=== PATIENT | female | born 1950 | race Caucasian/White ===

== ENCOUNTER 2019-05-09 12:24 | Emergency (ER) | payer MEDICARE, OTHER, SELFPAY ==
[2019-05-09 12:52] VITALS: BP 125/87; PULSE 94; RESP 16; TEMP 36.6; O2SAT 96; BMI 19.8
--- NOTE | 2019-05-09 13:06 | ED_ITS ---
HPI - General Adult General: Chief complaint: Dental/Oral Stated complaint: DENTAL PAIN Time Seen by Provider: 05/09/19 12:48 History of Present Illness: HPI narrative: Patient presents with swelling left mandible area times a few days. Was seen in urgent care treated for dental abscess placed on Augmentin and area is not improved.. Was told to follow-up here if no improvement. Patient has a history of throat neck cancer. Patient denies fever or pain when eating. MD complaint: growth Onset (ago): day(s) (4) Location: face Radiation: non-radiation Severity: mild Pain Consistency: constant Associated symptoms: Reports no associated symptoms; Deny chest pain, dyspnea, headache(s), nausea, rash or vomiting Review of Systems Const: Denies: fever, chills or body aches Eyes: Denies: change in vision or blurry vision ENMT: Denies: throat pain or nasal congestion Card: Denies: chest pain or shortness of breath on exertion Resp: Denies: shortness of breath, productive cough or non-productive cough GI: Denies: abdominal pain, nausea or vomiting Musc: Denies: extremity pain Skin/Breast: Denies: rash Neuro: Denies: headache Psych: Denies: anxiety or depression Timothy/Lymph: Denies: easy bruising PFSH ED PFSH: Social History (Updated 05/06/19 @ 13:57 by Esther Ghosh LPN) Smoking and tobacco status: former smoker Course Vital Signs: Vital signs: Vital Signs Temperature 97.9 F 05/09/19 12:52 Pulse Rate 94 05/09/19 12:52 Respiratory Rate 16 05/09/19 12:52 Blood Pressure 125/87 05/09/19 12:52 Pulse Oximetry 96 05/09/19 12:52 Discharge Plan Discharge Prescriptions: No Action levothyroxine 75 mcg capsule 75 mcg PO DAILY RF: 0 Prolia 60 mg/mL syringe SUBCUT RF: 0 amoxicillin-pot clavulanate [Augmentin] 875-125 mg tablet 1 tab PO BID 7 Days Qty: 14 RF: 0 Coding Level of Care Code ED Home Service Technician for Chela Cerrato
--- NOTE | 2019-05-09 13:12 | CTR_ITS ---
PROCEDURE INFORMATION: Exam: CT Neck With Contrast Exam date and time: 05/09/2019 2:05 PM Age: 68 years old Clinical indication: Mass, lump, or swelling in neck; Prior surgery; Surgery date: 6+ months; Surgery type: Throat; Additional info: Lump of mandible ( HX of CA neck) TECHNIQUE: Imaging protocol: Computed tomography images of the neck with intravenous contrast. Total DLP: 460.35 mGy-cm Radiation optimization: All CT scans at this facility use at least one of these dose optimization techniques: automated exposure control; mA and/or kV adjustment per patient size (includes targeted exams where dose is matched to clinical indication); or iterative reconstruction. Contrast material: OMIN 300; Contrast volume: 75 ml; Contrast route: LT AC; COMPARISON: No relevant prior studies available. FINDINGS: Nasopharynx: Unremarkable. Oropharynx: Unremarkable. No significant tonsillar enlargement. Hypopharynx: Unremarkable. Larynx: Unremarkable. Normal epiglottis. Retropharyngeal space: Unremarkable. Submandibular/Parotid glands: Parotid glands are normal. Submandibular glands are partially obscured by artifact. Thyroid: Normal. No enlarged or calcified nodules. Lymph nodes: Unremarkable. No lymphadenopathy. Trachea: Visualized trachea is unremarkable. Lungs: There is pleural thickening and/or scarring at the lung apices. Dental: There is dental hardware with resultant beam hardening artifact. Soft tissues adjacent to the mandible are obscured. There is some heterogeneous increased density in the visualized soft tissues anterior to the left mandible. Edema is present in the overlying subcutaneous soft tissues of the left mandible. Bones/joints: There degenerative changes in the visualized spine most severe across the C3-C4 level. Grade 1 retrolisthesis of C3 on C4. There are broad-based disc osteophyte complexes at the C3-C4 through the C6-C7 levels. Soft tissues: There are benign-appearing soft tissue calcifications. CT/CT neck w con* [id number] IMPRESSION: There is some heterogeneous increased density in the soft tissues anterior to the left mandible with adjacent edema. This is nonspecific. Differential includes scar tissue and/or inflammation/infection. Residual/recurrent neoplasm cannot be excluded. Radiation Dose CTDIVOL = (mGy): DLP = 460.35 (mGy-cm)
--- NOTE | 2019-05-09 13:13 | PC.NURSE ---
Pt had abscess of which she was seen on Saturday for and placed on Antibiotics. Lower right mandible is swollen and pt C/O pain upon opening jaw.
[2019-05-09 13:35] LABS: Basophils % 0.5 %; Eosinophils # 0.1 10^3/uL (0.0-0.8); Eosinophils % 0.9 %; Hematocrit 36.7 % (37.0-47.0); Hemoglobin 12.1 g/dL (11.5-15.3); Lymphocytes # 1.4 10^3/uL (0.8-4.8); Lymphocytes % 18.4 %; Mean Corpuscular Hemoglobin 29.1 pg (28.0-34.0); Mean Corpuscular Volume 88.2 fL (81-99); Mean Platelet Volume 9.5 fL (7.4-10.4); Monocytes # 0.8 10^3/uL (0.2-0.9); Monocytes % 11.3 %; Neutrophils # 5.1 10^3/uL (1.8-7.7); Neutrophils % 68.5 %; Nucleated Red Blood Cells % 0 %; Platelet Count 371 10^3/cmm (130-400); Red Blood Count 4.16 10^6/uL (4.1-5.3); Red Cell Distribution Width 12.9 % (12.1-15.1); White Blood Count 7.5 10^3/uL (4.0-10.0)
[2019-05-09 13:55] LABS: Anion Gap 17.8 (5-19); Blood Urea Nitrogen 8 mg/dL (8-23); Calcium 9.4 mg/dL (8.5-10.5); Carbon Dioxide 25 mmol/L (22-29); Chloride 99 mmol/L (98-107); Creatinine Clr Calc Pharmacy 50.0096; Glucose 104 mg/dL (65-115); Osmolality Calculated 282 mOsm/kg (285-295); Potassium 3.8 mmol/L (3.5-5.1); Sodium 138 mmol/L (136-145)
[2019-05-09] MEDS: iohexol 300 mg/mL 100 mL Btl IV (14:18)
[2019-05-09 15:27] VITALS: BP 143/85; PULSE 93; RESP 16; TEMP 36.8; O2SAT 97
== END 2019-05-09 15:26 | disposition home or self-care (01) ==
PROVIDERS: Emergency Provider Nurse Practitioner Family; Family Provider Family Medicine; PCP Family Medicine
DX: K08.89 Other specified disorders of teeth and supporting structures (principal); Z87.891 Personal history of nicotine dependence
CPT/HCPCS: 70491; 80048; 85025; 99282; 99283; Q9967

== ENCOUNTER 2019-08-12 13:49 | Outpatient (CLI) | payer MEDICARE, OTHER, SELFPAY ==
--- NOTE | 2019-08-12 14:15 | PC.NURSE ---
During assessment pt states she had root canal last week and is having another within the next month. Discussed with her we needed to adjust timing around dental work. BP initially 150/100. After discussion and rest BP 126/89.
--- NOTE | 2019-08-12 14:18 | PC.NURSE ---
States had a dental abscess, was treated with antibiotics and also had CDIFF. States resolved near end of June 2019
--- NOTE | 2019-08-12 15:50 | PC.NURSE ---
Discussed Prolia with Dr. Bebo CASON and Dr. King. Ok to give Prolia to pt today.
[2019-08-12 15:52] VITALS: BP 124/86; PULSE 88; RESP 16; TEMP 36.6; O2SAT 97
[2019-08-12] MEDS: denosumab 60 mg SDV SUBCUT (15:55)
[2019-08-12 16:09] VITALS: BP 142/86; PULSE 72; RESP 16; TEMP 36.8; O2SAT 97
== END 2019-08-12 13:50 | disposition home or self-care (01) ==
LOC: RHEOACUTE 13:51
PROVIDERS: Family Provider Family Medicine; PCP Family Medicine; Visit Provider Internal Medicine Rheumatology
DX: M81.0 Age-related osteoporosis without current pathological fracture (principal)
CPT/HCPCS: 96372; J0897

== ENCOUNTER → 2020-03-16 09:54 | Outpatient (BNVA) | payer MEDICARE, OTHER, SELFPAY | PROVIDERS: Family Provider Family Medicine; PCP Family Medicine; Visit Provider Internal Medicine | DX: M81.0 Age-related osteoporosis without current pathological fracture (principal); Z79.899 Other long term (current) drug therapy; Z11.1 Encounter for screening for respiratory tuberculosis | CPT/HCPCS: 36415; 80053; 82306; 83735; 84100; 85025; 86480; 99203 ==

== ENCOUNTER 2020-04-06 12:58 | Outpatient (CLI) | payer MEDICARE, OTHER, SELFPAY ==
[2020-04-06] MEDS: denosumab 60 mg SDV SUBCUT (13:33)
== END 2020-04-06 12:59 | disposition home or self-care (01) ==
LOC: ONCMED 13:04
PROVIDERS: Family Provider Family Medicine; PCP Nurse Practitioner Family; Visit Provider Internal Medicine Medical Oncology
DX: M81.0 Age-related osteoporosis without current pathological fracture (principal)
CPT/HCPCS: 96372; J0897

== ENCOUNTER 2020-08-30 09:45 | Outpatient (CLI) | payer MEDICARE, OTHER, SELFPAY ==
--- NOTE | 2020-08-30 10:30 | FL_ITS ---
WS: [id number] Exam: FL barium swallow modifd [id number] Date/Time of Exam: 08/30/2020 10:34 AM Reason For Exam: Fluoroscopy time: 4.5 minutes The exam was performed in conjunction with the speech therapy department. Swallowing function at the level of oropharynx was compromised with the poor pharyngeal peristalsis. There was significant pooling of thin liquid, thick liquid, pudding consistency and solid barium mixt ure foodstuffs within the piriform sinuses and vallecula. Minimal penetration into the laryngeal inle t was identified with thin liquids. No gross aspiration was identified during the exam. FL/FL barium swallow modifd [id number] IMPRESSION: 1. Compromised swallowing function at the level of the oropharynx due to poor p haryngeal peristalsis. 2. Pooling of all consistencies of barium mixture foodstuffs within the vallecu la and piriform sinuses. 3. Very minimal penetration into the laryngeal inlet was noted during ingestion of thin liquid barium. No significant aspiration was identified during the exa m. A separate report of findings and recommendations will be provided by the [facility] therapy department.
== END 2020-08-30 09:46 | disposition home or self-care (01) ==
LOC: RAD 09:51
PROVIDERS: PCP Nurse Practitioner Family; Visit Provider Otolaryngology
DX: R13.10 Dysphagia, unspecified (principal)
CPT/HCPCS: 74230; 92611

== ENCOUNTER 2020-09-26 11:18 | Outpatient (RCR) | payer MEDICARE, OTHER, SELFPAY | END 2020-10-15 23:59 | disposition home or self-care (01) | LOC: SST 11:18 | PROVIDERS: PCP Nurse Practitioner Family; Referring Provider Otolaryngology; Visit Provider Otolaryngology | DX: R13.12 Dysphagia, oropharyngeal phase (principal); F80.9 Developmental disorder of speech and language, unspecified | CPT/HCPCS: 92507; 92526; 92610 ==

== ENCOUNTER 2020-10-16 06:00 | Outpatient (RCR) | payer MEDICARE, OTHER, SELFPAY | END 2020-11-15 23:59 | disposition home or self-care (01) | LOC: SST 06:00 | PROVIDERS: PCP Nurse Practitioner Family; Referring Provider Otolaryngology; Visit Provider Otolaryngology | DX: R13.12 Dysphagia, oropharyngeal phase (principal); R47.9 Unspecified speech disturbances | CPT/HCPCS: 92507; 92526 ==

== ENCOUNTER 2024-02-11 13:55 | Emergency (ER) | payer MEDICARE, OTHER, SELFPAY ==
[2024-02-11 14:31] VITALS: BP 111/74; PULSE 90; RESP 22; TEMP 36.7; O2SAT 97; BMI 15.0
[2024-02-11 14:55] VITALS: BP 108/72; PULSE 96; RESP 16; O2SAT 96
--- NOTE | 2024-02-11 14:58 | XRR_ITS ---
PROCEDURE INFORMATION: Exam: XR Abdomen Exam date and time: 02/11/2024 3:19 PM Age: 73 years old Clinical indication: Constipation; Additional info: Constipation, peg tube TECHNIQUE: Imaging protocol: Radiologic exam of the abdomen. Views: Frontal supine view of the abdomen. 1 View. COMPARISON: CT chest wo con [id number] 08/02/2017 12:09 PM FINDINGS: Tubes, catheters and devices: Percutaneous gastric tube projects over the left upper quadrant. Gastrointestinal tract: No visibly dilated small bowel. There is mild diffuse gas distension of the colon. Minimal stool is seen in the distal sigmoid or rectum. Intraperitoneal space: No free air. Bones/joints: There is moderate degenerative disease in the lower lumbar spine. No acute osseous findings. XR/XR abdomen 1V* [id number] IMPRESSION: Mild gaseous distension of the colon. No sign of high-grade bowel obstruction.
--- NOTE | 2024-02-11 14:59 | ED_ITS ---
HPI - General Adult 2 General: Chief complaint: General Medical Stated complaint: G-tube issues/ constapation Time Seen by Provider: 02/11/24 14:24 History of Present Illness: Patient presents to the ER for drainage at her G-tube site PEG tube that was placed approximately week ago by a surgeon in [place]. Patient also states he is constipated not had a bowel movement in a week. Patient has not been using any narcotics except for 1 dose today. Patient has been taking feedings through the tube. Patient had experienced increased pain during her feeding today. Related Data Home Medications Medication Instructions Recorded Confirmed levothyroxine 88 mcg tablet 88 mcg PO DAILY 02/11/24 02/11/24 Allergies Allergy/AdvReac Type Severity Reaction Status Date / Time codeine Allergy ADR-Nausea Verified 02/11/24 14:37 Review of Systems 2 General: Reports: 10 or more systems reviewed and unremarkable except in HPI and below PFSH ED 2 PFSH: Medical History Hypothyroidism History of squamous cell carcinoma THROAT Social History Smoking and tobacco/nicotine status: never used tobacco/nicotine Alcohol intake: never Substance/Drug Use: never Physical Exam 2 Const: COMMON NORMALS: no acute distress, average body habitus, patient oriented x3, no limitations, healthy appearing, alert and well nourished HENMT: COMMON NORMALS: normocephalic, atraumatic, hearing grossly normal bilaterally, external ears normal, Normal external nose present and moist oral mucous membranes HEAD & SCALP: normocephalic and atraumatic NOSE: Normal external nose present EXTERNAL EAR: Yes external ears normal Neck/C-Spine: COMMON NORMALS: no JVD Chest: COMMONS NORMALS: normal inspection of the chest and normal palpation of entire chest wall Resp: COMMON NORMALS: normal respiratory effort, No retractions, No use of accessory muscles and clear to auscultation bilaterally AUSCULTATION: clear to auscultation bilaterally Cardio: COMMON NORMALS: no JVD, regular rate, regular rhythm, S1 normal heart sound present, S2 normal heart sound present, No gallops present (Cardio), No clicks present (Cardio), No murmurs present (Cardio) and No rub (Cardio) R ATE: regular rate RHYTHM: regular rhythm HEART SOUNDS: S1 normal heart sound present and S2 normal heart sound present GI: COMMON NORMALS: Normal to inspection, nondistended, normoactive bowel sounds present (PEG tube in place and surgical site looks good, minimal erythema minimal mu), Soft to palpation, non-tender, No hepatosplenomegaly present and no masses PALPATION: Yes Soft to palpation and Yes No hepatosplenomegaly present Neuro: COMMON NORMALS: patient oriented x3 SENSORIUM/ORIENTATION: Yes alert Course 2 Vital Signs: Vital signs: Vital Signs Temperature 98.1 F 02/11/24 14:31 Pulse Rate 96 02/11/24 14:55 Respiratory Rate 16 02/11/24 14:55 Blood Pressure 108/72 02/11/24 14:55 Pulse Oximetry 96 02/11/24 14:55 Oxygen Delivery Me thod Room Air 02/11/24 14:55 MDM - General Adult Medical Decision Making Lab work and x-rays are essentially unremarkable. These results was discussed with the patient and family. Patient be discharged home. Medical Records I reviewed the patient's medical records. Lab Data I reviewed the patient's lab results. 02/11/24 15:12 02/11/24 15:12 Radiology Impressions Abdomen X-Ray 02/11/24 14:58 IMPRESSION: Mild gaseous distension of the colon. No sign of high-grade bowel obstruction. Laboratory Results WBC 5.98 10^3/uL (3.29-11.43) 02/11/24 15:12 RBC 4.88 10^6/uL (3.85-5.65) 02/11/24 15:12 Hgb 13.00 g/dL (11.27-16.99) 02/11/24 15:12 Hct 40.2 % (36-47) 02/11/24 15:12 MCV 82.4 fl (85-98) L 02/11/24 15:12 MCH 26.6 pg (27-33) L 02/11/24 15:12 MCHC 32.3 g/dL (30-55) 02/11/24 15:12 RDW 15.3 % (12.1-15.1) H 02/11/24 15:12 Plt Count 266 10^3/cmm (157-399) 02/11/24 15:12 MPV 9.8 fL (7.4-10.4) 02/11/24 15:12 Neut % (Auto) 61.1 % 02/11/24 15:12 Lymph % (Auto) 21.4 % 02/11/24 15:12 [place] % (Auto) 16.6 % 02/11/24 15:12 Eos % (Auto) 0.5 % 02/11/24 15:12 Baso % (Auto) 0.2 % 02/11/24 15:12 Neut # (Auto) 3.66 10^3/uL (1.8-7.7) 02/11/24 15:12 Lymph # (Auto) 1.3 10^3/uL (0.8-4.8) 02/11/24 15:12 [place] # (Auto) 1.0 10^3/uL (0.2-0.9) H 02/11/24 15:12 Eos # (Auto) 0.0 10^3/uL (0.0-0.8) 02/11/24 15:12 Baso # (Auto) 0.0 10^3/uL (0.0-0.1) 02/11/24 15:12 Nucleated RBC % (auto) 0 % 02/11/24 15:12 Nucleated RBCs # 0.0 /100WBC 02/11/24 15:12 Sodium 137 mmol/L (136-145) 02/11/24 15:12 Potassium 3.9 mmol/L (3.5-5.1) 02/11/24 15:12 Chloride 98 mmol/L (98-107) 02/11/24 15:12 Carbon Dioxide 31 mmol/L (22-29) H 02/11/24 15:12 Anion Gap 11.9 (5-19) 02/11/24 15:12 BUN 11 mg/dL (8-23) 02/11/24 15:12 Creatinine 0.6 mg/dL (0.5-0.9) 02/11/24 15:12 GFR Calculation Not Reportable 02/11/24 15:12 Glucose 121 mg/dL (65-115) H 02/11/24 15:12 Calculated Osmolality 285 mOsm/kg (285-295) 02/11/24 15:12 Calcium 9.2 mg/dL (8.5-10.5) 02/11/24 15:12 Total Bilirubin 0.3 mg/dL (0.15-1.2) 02/11/24 15:12 AST 15 U/L (0-32) 02/11/24 15:12 ALT 12 U/L (0-33) 02/11/24 15:12 Alkaline Phosphatase 82 U/L (35-105) 02/11/24 15:12 Total Protein 7.0 g/dL (6.6-8.7) 02/11/24 15:12 Albumin 3.9 g/dL (3.5-5.2) 02/11/24 15:12 Globulin 3.1 g/dL (1.3-4.6) 02/11/24 15:12 All radiology interpretation(s) finalized by discharge Discharge Plan Discharge Patient Disposition: Home Clinical Impression: Acute constipation Condition: Stable Prescriptions: No Action levothyroxine 88 mcg tablet 88 mcg PO DAILY Discharge Orders: Discharge ED (Routine); Ordered 02/11/24 Ordered By: Bryce Riddle Referrals: Kendra Colunga FNP [Primary Care Provider] - 1 week Patient Instructions: Constipation (DC) Activity Restrictions/Additional Instructions: Thank you for choosing [facility] for your healthcare needs today. Please realize that you were seen in the emergency department and that we are providing you with an emergency medical screening exam and this may not be a complete and all exclusive of all testing and/or medical workup we may need to determine your element or severity of your illness. It is very important that you follow-up as instructed with your primary care provider or specialist for the additional evaluation and to discuss your medical treatment plan. You may return to the emergency department should you have concerns or if your condition changes or worsens in any way. Coding Level of Care Code ED Professional Golf Tournament Player for Chela Cerrato
[2024-02-11 15:24] LABS: Basophils % 0.2 %; Eosinophils % 0.5 %; Hematocrit 40.2 % (36-47); Lymphocytes # 1.3 10^3/uL (0.8-4.8); Lymphocytes % 21.4 %; Mean Corpuscular HGB Conc 32.3 g/dL (30-55); Mean Corpuscular Hemoglobin 26.6 pg (27-33); Mean Corpuscular Volume 82.4 fl (85-98); Mean Platelet Volume 9.8 fL (7.4-10.4); Monocytes % 16.6 %; Neutrophils # 3.66 10^3/uL (1.8-7.7); Neutrophils % 61.1 %; Nucleated Red Blood Cells % 0 %; Platelet Count 266 10^3/cmm (157-399); Red Blood Count 4.88 10^6/uL (3.85-5.65); Red Cell Distribution Width 15.3 % (12.1-15.1); White Blood Count 5.98 10^3/uL (3.29-11.43)
--- NOTE | 2024-02-11 15:35 | PC.PHAR ---
patient states she has a g-tube so right now she gets all her nutrients via that so i discontinued her otc vitamins
[2024-02-11 15:43] LABS: Alanine Aminotransferase 12 U/L (0-33); Albumin Level 3.9 g/dL (3.5-5.2); Alkaline Phosphatase 82 U/L (35-105); Anion Gap 11.9 (5-19); Aspartate Amino Transferase 15 U/L (0-32); Blood Urea Nitrogen 11 mg/dL (8-23); Calcium 9.2 mg/dL (8.5-10.5); Carbon Dioxide 31 mmol/L (22-29); Chloride 98 mmol/L (98-107); Creatinine Clr Calc Pharmacy 34.0174; Globulin 3.1 g/dL (1.3-4.6); Glucose 121 mg/dL (65-115); Osmolality Calculated 285 mOsm/kg (285-295); Potassium 3.9 mmol/L (3.5-5.1); Sodium 137 mmol/L (136-145); Total Bilirubin 0.3 mg/dL (0.15-1.2)
[2024-02-11 16:28] VITALS: BP 119/78; PULSE 86; RESP 14; O2SAT 96
== END 2024-02-11 16:29 | disposition home or self-care (01) ==
PROVIDERS: Emergency Provider Emergency Medicine; PCP Nurse Practitioner Family
DX: K59.00 Constipation, unspecified (principal); Z85.89 Personal history of malignant neoplasm of other organs and systems
CPT/HCPCS: 36415; 74018; 80053; 85025; 99284

== ENCOUNTER 2024-09-12 09:10 | Emergency (ER) | payer MEDICARE, OTHER, SELFPAY ==
[2024-09-12 09:11] VITALS: BP 129/81; PULSE 96; RESP 16; TEMP 36.7; O2SAT 97; BMI 20.1
--- OUTSIDE RECORDS SUMMARY | 2024-09-12 09:14 | XMS_ITS | Continuity of Care Document ---
Author Name [facility] Organization [facility] Care Team Providers Care Senior Pricing Analyst Name Role Phone [facility] Unavailable Unavailable Medications Combined list of outpatient medications from Department of Defense and Veterans Affairs facilities.Medications provided include 1) outpatient medications from the last 15 months, and 2) patient-reported medications. Medication Details Route Status Patient Instructions Prescription Expires Prescription Number Last Dispense Date Ordering Provider Order Date Order Qty Source LEVOTHYROXI NE SODIUM (levothyrox ine sodium), 75 MCG, TABLET, ORAL, [facility], 90 ea. BOTTLE Cancele d [id number] : 2023 0 Pharmac y Data Transac tion Service Facilit y Social History Combined list of available smoking, tobacco, and other social history from Department of Defense and Veterans Affairs facilities. Social History Type Response Date Comment [facility] This section is an empty social history section. DoD
--- OUTSIDE RECORDS SUMMARY | 2024-09-12 09:15 | XMS_ITS | Encounter Summary ---
Author Organization [facility] Address [address] [place] [address] Care Team Providers Care Spiral Weaver Name Role Phone Unavailable Primary Care Provider Unavailabl e Encounter Details Date Type Department Care Team (Latest Contact Info) Description 06/13/2000 Outpatient Historical [facility] Saturnino Peterson, Easton Salinas MD [address] [place] [phone] Urinary tract infection, site not specified (Primary Dx) Social History Tobacco Use Types Packs/Day Years Used Date Smoking Tobacco: Never Assessed Comments Unknown Sex and Gender Information Value Date Recorded Sex Assigned at Not on file 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
--- OUTSIDE RECORDS SUMMARY | 2024-09-12 09:15 | XMS_ITS | Patient Health Record ---
Author Organization [facility] Address [address] [place] [address] Care Team Providers Care E Commerce Merchant Name Role Phone Richa Messer Primary Care Provider [phone] Easton [place] Unavailable [phone] Allergies No Known Allergies Reason For Referral No Information Medications Medication SIG (Take, Route, Frequency, Duration) Notes Start Date End Date Status Vitamin E Take 1 to 2 drop(s) by mouth daily for 30 01/28/2013 Active Multi Vitamin - 1 tablet Orally Once a day Active Vitamin B12 500 MCG 1 tablet Orally Once a day Active Vitamin B6 50 MG 1 tablet Orally Once a day Active Menopause Formula - as directed Orally better he alth natural menopause cream Active Simvastatin 40 MG/5ML 5 ml in the evenin g Orally Once a day for 30 day(s) 10/21/2020 Active Synthroid 75 MCG Take 1 tablet(s) by mouth daily Oral Once a day for 90 days Active Immunizations Vaccine Route Administration Date Status Comme nts Tdap ID Intradermal 04/17/2012 Administered Social History Tobacco Use: Social History Observation Description Date Details (start date - stop date) Never Smoker NA - NA xTobacco Use/Smoking Question Answer Notes Are you a nonsmoker PHQ-9 Question Answer Notes Little interest or pleasure in doing things Not at all Feeling down, depressed, or hopeless Not at all Trouble falling or staying asleep, or sleeping t oo much Not at all Feeling tired or having little energy Not at all Poor appetite or overeating Not at all Feeling bad about yourself, or that you are a failure, or have let yourself or your family down Not at all Trouble concentrating on thi ngs, such as reading the newspaper or watching television Not at all Moving or speaking so slowly that other people could have noticed. Or the opposite ? being so fidgety or restless that you have been moving around a lot more than usual Not at all Thoughts that you would be b brennan off , or of hurting yourself in some way Not at all Total Score 0 Problems Problem Type SNOMED Code ICD Code Onset Dates Problem Status W/U Status Risk Notes Problem Hypothyroidism (80373740) Hypothyroidism (E03.9) Active confirmed Problem 73089164 Hypercholesterol emia (E78.00) Active confirmed Problem Hypertension (19132317) Hypertension (I10) Active confirmed Problem Acquired hypothyroidism (959591863) Acquired hypothyroidism (244.8) 2010 Active confirmed [id number]- Problem Essential hypertension (85103264) Essential hypertension (401.1) 2018 Active confirmed [id number]- Problem Osteoporosis (75745682) Osteoporosis (V17.81) 2018 Active confirmed [id number]- Problem Actinic keratosis (029765932) Actinic keratosis (702.0) 2015 Problem resolved confirmed [id number]- Problem Edema (914880458) Edema (782.3) 2008 Problem resolved confirmed [id number]- Problem Cough (98925998) Cough (786.2) 2014 Problem resolved confirmed [id number]- Problem Vitamin D deficiency (06834399) Vitamin D deficiency (268.9) 2008 Problem resolved confirmed [id number]- Problem Hypercholesterolemia (72503539) Hypercholesterolemia (272.0) 2008 Problem resolved confirmed [id number]- Problem Radiology result abnormal (456660906) Other nonspecific (abnormal) findings on radiological and other examinations of body structure (793.99) 2015 Problem resolved confirmed [id number]- Problem Tuberculosis screening (143150594) Screening for pulmonary tuberculosis (V74.1) 2009 Problem resolved confirmed [id number]- Problem Shoulder pain (79661178) Shoulder pain (719.41) 2009 Problem resolved confirmed [id number]- Problem Screening for breast cancer (490430592) Screening for breast cancer (V76.10) 2012 Problem resolved confirmed [id number]- Problem Solitary nodule of lung (956839651) Lung nodule (518.89) 2017 Problem resolved confirmed [id number]- Problem Hand pain (01169066) Hand pain (729.5) 2012 Problem resolved confirmed [id number]- Problem Pre-employment screening (procedure) (310352900) Health exam for pre-employment screening (V70.5) 2007 Problem resolved confirmed [id number]- Problem Screening for malignant neoplasm of colon (032202573) Screening for colorectal cancer (V76.49) 2011 Problem resolved confirmed [id number]- Problem Postmenopausal osteoporosis (654857636) Postmenopausal osteoporosis (733.01) 2012 Problem resolved confirmed [id number]- Problem Bacterial pneumonia (96858821) Bacterial pneumonia, unspecified (482.9) 2015 Problem resolved confirmed [id number]- Problem Nummular eczema (06206651) Nummular eczema (692.9) 2010 Problem resolved confirmed [id number]- Problem Acquired hypothyroidism (727904285) Acquired hypothyroidism, other specified cause (244.8) 2017 Problem resolved confirmed [id number]- Problem 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 (45168904) Unspecified skin lesion (239.2) 2018 Problem resolved confirmed [id number]- Problem Screening mammograph y (36412701) Screening mammogram - other (V76.12) 2018 Problem resolved confirmed [id number]- Problem Seborrheic dermatiti s (52519714) Seborrheic dermatitis, other (690.18) 2016 Problem resolved confirmed [id number]- Problem Gynecological examination normal (547545748370111) Wellness exam (V72.31) 2018 Problem resolved confirmed [id number]- Plan Of Treatment No Information Insurance Providers Payer Name Payer Address Payer Phone Subscriber Number Group Number Insured Name Patient Relationship to Insured Coverage Start Date Coverage End Date [place] [address] [address] [place] [phone] [id number] Gloria Colón Self - patient is the insured 5 for Life Secondary to Medicare [address] [place] [address] [id number] TEVIN MuñozGloria Self - patient is the insured Medical (General) History Medical History History ICD Code Hypothyroidism, acquired, 1995 Essential hypertension Lung nodule Osteoporosis; Prolia q6m through Rheumat ology Throat cancer; 1994 Atrophy of throat and neck muscles, Surgical History Surgery Date(Month/Year) Throat cancer x2 1994, 1996 Biopsy of Lymph Node Cholecystectomy 1972
--- OUTSIDE RECORDS SUMMARY | 2024-09-12 09:15 | XMS_ITS | Encounter Summary ---
Author Organization [facility] Address [address] [place] [address] Care Team Providers Care Watermelon Harvesting Supervisor Name Role Phone Unavailable Primary Care Provider Unavailabl e Encounter Details Date Type Department Care Team (Latest Contact Info) Description 10/25/2000 Outpatient Historical [facility] Saturnino Peterson, Easton Salinas MD [address] [place] [phone] Symptomatic menopausal or female climacteric states (Primary Dx); Spasm of muscle; Need for prophylactic hormone replacement therapy (postmenopausal) Social History Tobacco Use Types Packs/Day Years Used Date Smoking Tobacco: Never Assessed Comments Unknown Sex and Gender Information Value Date Recorded Sex Assigned at Not on file 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
--- OUTSIDE RECORDS SUMMARY | 2024-09-12 09:15 | XMS_ITS | Encounter Summary ---
Author Organization [email or web address] [facility] Address [address] [place] [address] Care Team Providers Care Appliance Adjuster Name Role Phone Unavailable Primary Care Provider Unavailabl e Encounter Details Date Type Department Care Team (Latest Contact Info) Description 06/27/2000 Outpatient Historical [facility] Saturnino Peterson, Easton Salinas MD [address] [place] [phone] Personal history of other disorder of urinary system (Primary Dx); Breast screening, unspecified Social History Tobacco Use Types Packs/Day Years Used Date Smoking Tobacco: Never Assessed Comments Unknown Sex and Gender Information Value Date Recorded Sex Assigned at Not on file 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
--- OUTSIDE RECORDS SUMMARY | 2024-09-12 09:15 | XMS_ITS | Encounter Summary ---
Author Organization [facility] Address [address] [place] [address] Care Team Providers Care Cocoa Press Operator Name Role Phone Unavailable Primary Care Provider Unavailabl e Encounter Details Date Type Department Care Team (Latest Contact Info) Description 05/20/2000 Outpatient Historical [facility] Saturnino Peterson, Easton Salinas MD [address] [place] [phone] Unspecified closed fracture of carpal bone (Primary Dx) Social History Tobacco Use Types Packs/Day Years Used Date Smoking Tobacco: Never Assessed Comments Unknown Sex and Gender Information Value Date Recorded Sex Assigned at Not on file 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
--- OUTSIDE RECORDS SUMMARY | 2024-09-12 09:15 | XMS_ITS | Encounter Summary ---
Author Organization [facility] [employer] [facility] Address [address] [place] [address] Care Team Providers Care Parking Station Attendant Name Role Phone Unavailable Primary Care Provider Unavailabl e Encounter Details Date Type Department Care Team (Latest Contact Info) Description 01/16/2001 Outpatient Historical [facility] Saturnino Peterson, Easton Salinas MD [address] [place] [phone] ALLERGY, UNSPECIFIED (Primary Dx); CHRONIC RHINITIS Social History Tobacco Use Types Packs/Day Years Used Date Smoking Tobacco: Never Assessed Comments Unknown Sex and Gender Information Value Date Recorded Sex Assigned at Not on file 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
--- OUTSIDE RECORDS SUMMARY | 2024-09-12 09:15 | XMS_ITS | Clinical Summary ---
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
--- NOTE | 2024-09-12 09:16 | ECG_ITS ---
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 Measurements Intervals [place] Rate: 96 P: 72 LA: 158 QRS: 39 QRSD: 81 T: 54 QT: 320 QTc: 405 Interpretive Statements SINUS RHYTHM LEFT ATRIAL ENLARGEMENT [-0.15mV P-WAVE IN V1/V2] EARLY REPOLARIZATION [ST ELEVATION WITH NORMALLY INFLECTED T-WAVE] Compared to ECG 04/12/2015 11:28:42 Atrial abnormality now present Early repolarization now present Electronically Signed On 09-17-2024 09:16:54 CDT by Timbo Greene M.D. [id number]
--- NOTE | 2024-09-12 09:23 | XRR_ITS ---
PROCEDURE INFORMATION: Exam: XR Chest Exam date and time: 09/12/2024 9:46 AM Age: 73 years old Clinical indication: Chest pressure; Chest pain TECHNIQUE: Imaging protocol: Radiologic exam of the chest. Views: 1 view. COMPARISON: CR XR abdomen 1V* [id number] 02/11/2024 3:19 PM FINDINGS: Tubes, catheters and devices: A gastrostomy tube overlies the stomach Lungs: Unremarkable. No consolidation. Pleural spaces: Unremarkable. No pleural effusion. No pneumothorax. Heart/Mediastinum: Unremarkable. No cardiomegaly. Bones/joints: Unremarkable. XR/XR chest 1V portable [id number] IMPRESSION: No acute findings.
[2024-09-12 09:37] VITALS: BP 129/81; PULSE 89; RESP 20; O2SAT 96
[2024-09-12 09:37] LABS: Basophils % 0.4 %; Eosinophils % 0.1 %; Hematocrit 43.7 % (36-47); Lymphocytes # 0.7 10^3/uL (0.8-4.8); Lymphocytes % 6.5 %; Mean Corpuscular HGB Conc 32.7 g/dL (30-55); Mean Corpuscular Hemoglobin 30.2 pg (27-33); Mean Corpuscular Volume 92.4 fl (85-98); Mean Platelet Volume 11.3 fL (7.4-10.4); Monocytes # 0.9 10^3/uL (0.2-0.9); Monocytes % 8.9 %; Neutrophils # 8.71 10^3/uL (1.8-7.7); Neutrophils % 83.8 %; Nucleated Red Blood Cells % 0 %; Platelet Count 172 10^3/cmm (157-399); Red Blood Count 4.73 10^6/uL (3.85-5.65); Red Cell Distribution Width 13.6 % (12.1-15.1); White Blood Count 10.38 10^3/uL (3.29-11.43)
[2024-09-12 10:06] LABS: Troponin(5th) Baseline 9 ng/L (0-10)
[2024-09-12 10:22] LABS: Alanine Aminotransferase 21 U/L (0-33); Albumin Level 4.3 g/dL (3.5-5.2); Alkaline Phosphatase 144 U/L (35-105); Anion Gap 17.1 (5-19); Aspartate Amino Transferase 23 U/L (0-32); Blood Urea Nitrogen 22 mg/dL (8-23); Calcium 9.6 mg/dL (8.5-10.5); Carbon Dioxide 26 mmol/L (22-29); Chloride 99 mmol/L (98-107); Globulin 2.9 g/dL (1.3-4.6); Glucose 103 mg/dL (65-115); NT Pro B Type Natriuretic Pept 292 pg/mL (0-125); Osmolality Calculated 290 mOsm/kg (285-295); Potassium 4.1 mmol/L (3.5-5.1); Sodium 138 mmol/L (136-145); Total Bilirubin 0.6 mg/dL (0.15-1.2); Total Protein 7.2 g/dL (6.6-8.7)
[2024-09-12 10:26] LABS: C Reactive Protein 4.6 mg/L (0.0-4.9); Lipase 35 U/L (13-60)
[2024-09-12] MEDS: ketorolac 30 mg/mL INJ 15 MG IVP (10:40)
[2024-09-12 10:41] VITALS: BP 128/82; PULSE 92; O2SAT 95
--- NOTE | 2024-09-12 11:06 | ECG_ITS ---
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 Measurements Intervals [place] Rate: 90 P: 72 MT: 163 QRS: 29 QRSD: 81 T: 46 QT: 331 QTc: 406 Interpretive Statements SINUS RHYTHM POSSIBLE LEFT ATRIAL ENLARGEMENT [-0.1mV P-WAVE IN V1/V2] EARLY REPOLARIZATION [ST ELEVATION WITH NORMALLY INFLECTED T-WAVE] Compared to ECG 09/12/2024 09:16:40 No significant changes Electronically Signed On 09-17-2024 09:38:33 CDT by Timbo Greene M.D. [id number] [id number]
--- NOTE | 2024-09-12 11:14 | ED_ITS ---
HPI - Chest Pain 2 General: Chief Complaint: Chest Pain Stated Complaint: CP Time Seen by Provider: 09/12/24 09:23 History of Present Illness: 73-year-old female reports last night nolvia huertas started developing some discomfort underneath the left ribs which she describes as near the base of the lungs, chest and around the diaphragm. She reports it continuing to bother her. She could not think of anything that would have caused it. She could not sleep very well because of the discomfort. She reports no known history of cardiopulmonary disease. She has not felt short of breath. No wheezing, fever, chills, sputum production, hemoptysis, extremity pain or swelling, history of DVT or PE, clotting disorder, trauma, orthopnea, dizziness, palpitations, jaw pain, arm pain, radiation to any low occasion outside of her chest. She does not have any abdominal pain. She does have a history of throat cancer and therefore has a G- tube. This is chronic for her. She does not remember having any recent viral illnesses or other problems. Associated symptoms: Deny abdominal pain, dyspnea, fever(s), nausea, palpitations, syncope or vomiting Related Data Home Medications ?Medication ?Instructions ?Recorded ?Confirmed levothyroxine 88 mcg tablet 88 mcg PO DAILY 02/11/24 0 09/12/24 vit B comp-E 30 unit-folic acid 1 tab PO DAILY 5 09/12/24 400 rht-aqiyvqv25-afryxyy 80 mg tablet (Menopause Support) Allergies Allergy/AdvReac Type Severity Reaction Status Date / Time codeine Allergy ADR-Nausea Verified 02/11/24 14:37 Review of Systems 2 General: Reports: 10 or more systems reviewed and unremarkable except in HPI and below Const: Denies: fever(s), chills or body aches Eyes: Denies: change in vision ENMT: Denies: throat pain Card: Reports: chest pain; Denies: palpitations, irregular heart rhythm, edema, swelling of feet/ankles, lightheadedness, syncope, pre-syncope, dyspnea on exertion or orthopnea Resp: Denies: dyspnea or productive cough GI: Denies: abdominal pain, nausea, vomiting or diarrhea : Denies: flank pain, dysuria or urinary frequency Musc: Denies: neck pain, back pain, extremity pain or extremity swelling Skin/Breast: Denies: rash or erythema Neuro: Denies: headache(s), numbness in extremities, weakness in extremities, lack of coordination or difficulty walking PFSH ED 2 PFSH: Medical History Hypothyroidism History of squamous cell carcinoma THROAT Social History Smoking and tobacco/nicotine status: never used tobacco/nicotine Alcohol intake: never Substance/Drug Use: never Female Reproductive History: Date of last menstrual period: 06/28/20 Physical Exam 2 Const: COMMON NORMALS: no limitations, alert and well nourished EXAM LIMITATIONS: no altered mental status HENMT: COMMON NORMALS: normocephalic, atraumatic and external ears normal H EAD & SCALP: normocephalic and atraumatic EXTERNAL EAR: Yes external ears normal MOUTH: no muffled voice Eye: COMMON NORMALS: EOMs intact bilaterally, conjunctivae normal and no scleral icterus CONJUNCTIVA: Yes conjunctivae normal Neck/C-Spine: COMMON NORMALS: no JVD GENERAL: Yes normal visual inspection and Yes trachea midline Resp: COMMON NORMALS: normal respiratory effort, No use of accessory muscles and clear to auscultation bilaterally AUSCULTATION: clear to auscultation bilaterally Cardio: COMMON NORMALS: no JVD, regular rate, regular rhythm, No gallops present (Cardio), No clicks present (Cardio) and No murmurs present (Cardio) RATE: regular rate RHYTHM: regular rhythm GI: COMMON NORMALS: Soft to palpation and non-tender PALPATION: Yes Soft to palpation and No Guarding due to palpation present (GI) Extremity: COMMON NORMALS: normal to inspection NARRATIVE EXTREMITY EXAM: No clinical signs of DVT or PE Neuro: COMMON NORMALS: moves all extremities, no focal motor deficits and no sensory deficits noted SENSORIUM/ORIENTATION: Yes alert SPEECH: speech normal Psych: COMMON NORMALS: mental status grossly normal, Normal thought process present, cooperative, normal affect and speech normal SPEECH: Yes normal speech THOUGHT PROCESS: Normal thought process present Skin: COMMON NORMALS: no rashes or lesions noted, turgor normal and no jaundice GENERAL SKIN EXAM: no rashes or lesions noted and turgor normal Course 2 Vital Signs: Vital signs: Vital Signs Temperature 98.1 F 09/12/24 09:11 Pulse Rate 92 09/12/24 10:41 Respiratory Rate 20 H 09/12/24 09:37 Blood Pressure 128/82 09/12/24 10:41 Pulse Oximetry 95 09/12/24 10:41 Oxygen Delivery Me thod Room Air 09/12/24 10:41 MDM - Chest Pain Medical Decision Making 73-year-old female presents emergency department complaining of chest discomfort. It is actually gotten better this morning but it was constant throughout the night. In the room, it is a little bit worse if she lays flat and a little bit better if she sits up. She does not have any cardiopulmonary history. She does not have any typical anginal features. She denies any known DVT or PE. She denies any risk factors for hypercoagulability. She has been in remission from her cancer for decades. An EKG was obtained at 9:16 AM. EP interpretation sinus rhythm, rate 96, there is diffuse ST segment elevation that is concave upwards in a pattern that is either benign early repull or possibly pericarditis. No significant OR depression. There is some possible left atrial enlargement. Repeat EKG at 11:06 AM shows a sinus rhythm, rate 98, no changes. Differential diagnosis includes acute coronary syndrome, pulmonary embolism, pericarditis, myocarditis, pleural effusion, pneumothorax, musculoskeletal pain, diaphragmatic pain, gastritis, GERD, hiatal hernia, and large differential diagnosis. I spoke to the patient about doing a D-dimer for screening. The patient is not keen on doing this. She does not think she would want to follow through with a CT scan of her chest with contrast if it is positive. The patient's troponin was within normal limits. Lipase is normal. LFTs are normal with exception of a mildly elevated alkaline phosphatase. BNP is minimally elevated to the point where it is not clinically relevant at this time. CRP was normal. Chest x-ray 1 view was obtained EP interpretation Normal cardiomediastinal silhouette, no infiltrates. No effusions. No pneumothorax visualized. Update Patient reexamined around 11:20 AM. No change to her symptoms. She says she feels great . She declines any further testing. Patient is going to be discharged. We are going to put her on full-strength aspirin twice a day for 5 days and then full-strength aspirin once a day for 5 days for possible pericarditis. Additionally we talked about follow-up with her primary care doctor because if she has ongoing symptoms or anything changes she will need further testing which may include cardiac stress testing, echocardiogram, etc. Patient was invited to return the emergency department if she has recurrent pain, worsening pain or changing symptoms. Lab Data 09/12/24 09:29 09/12/24 09:29 Radiology Impressions Chest X-Ray 09/12/24 09:23 IMPRESSION: No acute findings. Laboratory Results WBC 10.38 10^3/uL (3.29-11.43) 09/12/24 09: RBC 4.73 10^6/uL (3.85-5.65) 09/12/24 09: Hgb 14.30 g/dL (11.27-16.99) 09/12/24: Hct 43.7 % (36-47) 09/12/24 09: MCV 92.4 fl (85-98) 09/12/24: MCH 30.2 pg (27-33) 09/12/24: MCHC 32.7 g/dL (30-55) 09/12/24 09: RDW 13.6 % (12.1-15.1) 09/12/24 09: Plt Count 172 10^3/cmm (157-399) 09/12/24: MPV 11.3 fL (7.4-10.4) H 09/12/24 09: Neut % (Auto) 83.8 % 09/12/24 09: Lymph % (Auto) 6.5 % 09/12/24: [place] % (Auto) 8.9 % 09/12/24: Eos % (Auto) 0.1 % 09/12/24 09: Baso % (Auto) 0.4 % 09/12/24: Neut # (Auto) 8.71 10^3/uL (1.8-7.7) H 09/12/24: Lymph # (Auto) 0.7 10^3/uL (0.8-4.8) L 09/12/24: [place] # (Auto) 0.9 10^3/uL (0.2-0.9) 09/12/24 09: Eos # (Auto) 0.0 10^3/uL (0.0-0.8) 09/12/24 09:29 Baso # (Auto) 0.0 10^3/uL (0.0-0.1) 09/12/24 09: Nucleated RBC % (auto) 0 % 09/12/24 09: Nucleated RBCs # 0.0 /100WBC 09/12/24 09: Sodium 138 mmol/L (136-145) 09/12/24 09: Potassium 4.1 mmol/L (3.5-5.1) 09/12/24 09: Chloride 99 mmol/L (98-107) 09/12/24 09: Carbon Dioxide 26 mmol/L (22-29) 09/12/24 09: Anion Gap 17.1 (5-19) 09/12/24 09: BUN 22 mg/dL (8-23) 09/12/24 09: Creatinine 0.6 mg/dL (0.5-0.9) 09/12/24 09: GFR Calculation Not Reportable 09/12/24 09: Glucose 103 mg/dL (65-115) 09/12/24 09: Calculated Osmolality 290 mOsm/kg (285-295) 09/12/24 09: Calcium 9.6 mg/dL (8.5-10.5) 09/12/24 09: Total Bilirubin 0.6 mg/dL (0.15-1.2) 09/12/24 09: AST 23 U/L (0-32) 09/12/24 09: ALT 21 U/L (0-33) 09/12/24 09: Alkaline Phosphatase 144 U/L (35-105) H 09/12/24 09:29 Troponin T Baseline 9 ng/L (0-10) 09/12/24 09: C-Reactive Protein 4.6 mg/L (0.0-4.9) 09/12/24 09: NT-Pro-B Natriuret Pep 292 pg/mL (0-125) H 09/12/24 09:29 Total Protein 7.2 g/dL (6.6-8.7) 09/12/24 09: Albumin 4.3 g/dL (3.5-5.2) 09/12/24 09:29 Globulin 2.9 g/dL (1.3-4.6) 09/12/24 09:29 Lipase 35 U/L (13-60) 09/12/24 09:29 All radiology interpretation(s) finalized by discharge Discharge Plan Discharge Clinical Impression: Chest pain at rest Condition: Stable Prescriptions: No Action Menopause Support 30-400-80 unit-mcg-mg Tablet 1 tab PO DAILY levothyroxine 88 mcg tablet 88 mcg PO DAILY Discharge Orders: Discharge ED (Routine); Ordered 09/12/24 Ordered By: Philip Patiño Referrals: Kendra Colunga FNP [Primary Care Provider, Nurse Practitioner] - 09/21/24 Clinical Impression: Chest pain at rest Patient Instructions: Patient Portal & Rosalba Instructions, Chest Pain (ED) Activity Restrictions/Additional Instructions: Chest Pain Discharge Instructions Discharge Instructions for Chest Pain with Suspected Pericarditis - The evaluation for chest pain was negative for acute coronary syndrome, with a normal cardiac troponin and chest X-ray. However, the clinical presentation is consistent with possible pericarditis, a common cause of nonischemic chest pain. [1] https://pubmed.ncbi.nlm.nih.gov/77823917 [2] https://jamanetwork.com/journals/samantha/fullarticle/10 .1001/samantha.2024.00930?utm_source=openevidence&utm_medium=referral - Aspirin 325 mg orally twice daily for 5 days, then 325 mg once daily for the next 5 days is recommended as initial therapy for suspected pericarditis, consistent with NSAID-based regimens described in the literature. If gastrointestinal risk factors are present, consider gastroprotection.[2] https://jamanetwork.com/journals/samantha/fullarticle/10.1001/samantha.2024.87768?utm_so urce=openevidence&utm_medium=referral [3] https://www.nejm.org/doi/full/10.1056/SIGJcn7103910 [4] https://pubmed.ncbi .nlm.nih.gov/83160264 - Arrange follow-up with the primary care physician in 7 to 10 days to reassess symptoms, review laboratory results, and consider further workup if symptoms persist or worsen. The [place] [employer] recommends close outpatient follow-up for patients discharged after chest pain evaluation.[5] https://pubmed.ncbi.nlm.nih.gov/31356194 - A normal cardiac troponin does not exclude underlying coronary artery disease. If chest pain persists, further evaluation may be warranted, including cardiac stress testing and echocardiography, as recommended by the [place] [employer] and [place] [employer] Association.[6] https://pubmed.ncbi.nlm.nih.gov/23730553 [1] https://pubmed.ncbi.nlm.nih.gov/59123588 [5] https:/ /pubmed.ncbi.nlm.nih.gov/95766732 [3] https://www.nejm.org/doi/full/10.1056/UMDUdc1161544 - Return to the emergency department immediately for any of the following: - Severe, persistent, or worsening chest pain - New shortness of breath, fainting, palpitations, or irregular heartbeat - Fever, chills, or signs of infection - Swelling of the legs, difficulty breathing when lying flat, or any signs of heart failure - Any other concerning or rapidly changing symptoms - Additional recommendations: - Rest and avoid strenuous activity until cleared at follow-up, as exertion may exacerbate pericardial inflammation.[2] https://jamanetwork.com/journals/samantha/fullarticle/10.1001/samantha.2024.63239?utm_so urce=openevidence&utm_medium=referral [3] https://www.nejm.org/doi/full/10.1056/VCHUiy7765164 - If symptoms are not improving after 5-7 days of therapy, or if new symptoms develop, further diagnostic testing (including echocardiogram) should be considered.[1] https://pubmed.ncbi.nlm.nih.gov/06102388 [3] https://www.nejm.org/doi/full/10.1056/MHFHze0315746 [2] https://jamanetwork.com/journals/samantha/fullarticle/10.1001/samantha.2024.10082?utm_so urce=openevidence&utm_medium=referral - Colchicine may be considered as adjunct therapy to reduce recurrence risk, but is not included in this initial regimen.[2] https://jamanetwork.com/journals/samantha/fullarticle/10.1001/samantha.2024.85463?utm_so urce=openevidence&utm_medium=referral [3] https://www.nejm.org/doi/full/10.1056/SLRGvr0076246 [4] https://pubmed.ncbi .nlm.nih.gov/18837223 These instructions are consistent with the recommendations of the [place] [employer], [place] [employer] Association, and [place] College of Chest Physicians for the evaluation and management of chest pain and pericarditis.[6] https://pubmed.ncbi.nlm.nih.gov/74147949 [1] https://pubmed.ncbi.nlm.nih.gov/80475372 [5] https:/ /pubmed.ncbi.nlm.nih.gov/18254135 [3] https://www.nejm.org/doi/full/10.1056/LTDVcy2670668 [2] https: //jamanetwork.com/journals/samantha/fullarticle/10.1001/samantha.2023.15036?utm_source=o penevidence&utm_medium=referral References * 2020 AHA/ACC/ASE/CHEST/SAEM/SCCT/SCMR Guideline for the Evaluation and Diagnosis of Chest Pain: A Report of the [place] [employer]/[place] [employer] Association Joint Committee on Clinical Practice Guidelines https://pubmed.ncbi.nlm.nih.gov/90684191 . Bentley M, Chetan PD, Karely D, et al. Journal of the [place] [employer]. 2020;78(22):k676-x339. doi:10.1016/j.jacc.202.07.053. * Diagnosis, Risk Stratification, and Treatment of Pericarditis: A Review https://jamanetwork.com/journals/samantha/fullarticle/10.1001/samantha.2024.38129?utm_ source=openevidence&utm_medium=referral . Bud PC, Liam AL, Olga M. SAMANTHA. 202;332(13):9715-8042. doi:10.1001/samantha.2024.24968. * Acute Pericarditis https://www.nej.org/doi/full/10.1056/OAVVze1591448 . Rubi MESSER. The [place] Journal of Medicine. 2014;371(25):2410-6. doi:10.1056/INMNln2012221. * 2024 ACC/AHA/ACEP/NAEMSP/SCAI Guideline for the Management of Patients With Acute Coronary Syndromes: A Report of the [place] [employer]/[place] [employer] Joint Committee on Clinical Practice Guidelines https://pubmed.ncbi.nlm.nih.gov/17406759 . Ibarra SV, O'Rod ML, Carlin M, et al. Journal of the [place] [employer]. 2024;:H5522-71022405513-L. doi:10.1016/j.jacc.2023.11.009. * 2021 ACC Expert Consensus Decision Pathway on the Evaluation and Disposition of Acute Chest Pain In?the?Emergency Department: A Report of the [place] [employer] Solution Set Oversight Committee https://pubmed.ncbi.nlm.nih.gov/08870685 . Denisse MC, de Ana María JA, Maegan SB, et al. Journal of the [place] [employer]iology. 2021;80(20):1925- 1960. doi:10.1016/j.jacc.2021.08.750. * Navigating a Complicated World: The [place] [employer] Association/[place] [employer]iology/[place] College of Chest Physicians/Society of Academic Emergency Medicine/Society of Cardiovascular Computed Tomography/Society of Cardiovascular Magnetic Resonance Chest Pain Guidelines https://pubmed.ncbi.nlm.nih.gov/83894159 . [place] SM, Linn F, Jumean M, et al. Chest. 2021;162(1):e1-e3. doi:10.1016/j.chest.202.01.058. 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
[2024-09-12 11:56] LABS: Troponin 5 2HR 7.19 ng/L (0-10)
[2024-09-12 11:59] LABS: Troponin 5 2HR Delta -1.81 ABS# (0-10)
[2024-09-12 12:11] VITALS: BP 120/84; PULSE 72; RESP 18; O2SAT 98
== END 2024-09-12 12:12 | disposition home or self-care (01) ==
PROVIDERS: Emergency Provider Emergency Medicine; PCP Nurse Practitioner Family
DX: R07.89 Other chest pain (principal); Z85.89 Personal history of malignant neoplasm of other organs and systems
CPT/HCPCS: 36415; 71045; 80053; 83690; 83880; 84484; 85025; 86140; 93005; 96374; 99285; J1885

== ENCOUNTER → 2025-01-28 10:13 | Outpatient (BNVA) | payer MEDICARE, OTHER, SELFPAY | PROVIDERS: PCP Nurse Practitioner Family; Visit Provider Student in an Organized Health Care Education/Training Program | DX: R03.0 Elevated blood-pressure reading, without diagnosis of hypertension (principal); Z93.1 Gastrostomy status | CPT/HCPCS: 99203 ==

== ENCOUNTER → 2025-03-08 07:39 | Outpatient (BNVA) | payer MEDICARE, OTHER, SELFPAY | PROVIDERS: PCP Nurse Practitioner Family; Visit Provider Student in an Organized Health Care Education/Training Program | DX: Z93.1 Gastrostomy status (principal) | CPT/HCPCS: 43762; 99214 ==